=== PATIENT | female | born 1970 | race Caucasian/White ===

== ENCOUNTER 2020-07-16 15:41 | Outpatient (CLI) | payer BC, OTHER ==
--- NOTE | 2020-07-16 16:31 | MMO ---
Bilateral MAMMO Bilat Screen [facility]. CLINICAL HISTORY: Patient is 50 years old and is seen for screening. The patient has no family history of breast cancer. The patient has no personal history of cancer. VIEWS: The views performed were: bilateral craniocaudal with tomosynthesis and bilateral mediolateral oblique with tomosynthesis. This study has been interpreted with the assistance of computer-aided detection. MAMMOGRAM FINDINGS: The breasts are heterogeneously dense, which could obscure a lesion on mammography. Benign calcifications are noted bilaterally. There are no suspicious masses, suspicious calcifications, or new areas of architectural distortion. IMPRESSION: THERE IS NO MAMMOGRAPHIC EVIDENCE OF MALIGNANCY. A ROUTINE FOLLOW-UP MAMMOGRAM IN 1 YEAR IS RECOMMENDED. THE RESULTS OF THIS EXAM WERE SENT TO THE PATIENT. ACR BI-RADS Category 2 - Benign finding MAMMOGRAPHY NOTE: 1. A negative mammogram report should not delay a biopsy if a dominant of clinically suspicious mass is present. 2. Approximately 10% to 15% of breast cancers are not detected by mammography. 3. Adenosis and dense breasts may obscure an underlying neoplasm. Reported by: NESTOR PIERRE MD Electonically Signed: [id number]
== END 2020-07-16 15:42 | disposition home or self-care (01) ==
LOC: BICMAMMO 15:41
PROVIDERS: ATTEND Nurse Practitioner Family
DX: Z12.31 Encounter for screening mammogram for malignant neoplasm of breast (principal)
CPT/HCPCS: 77063; 77067

== ENCOUNTER 2022-04-16 07:57 | Outpatient (CLI) | payer BC ==
[2022-04-16] MEDS ORDERED: Iopamidol-370 76% 500 ML 1 ML ONE (10:39)
== END 2022-04-16 07:58 | disposition home or self-care (01) ==
LOC: BICCT 07:57
PROVIDERS: ATTEND Physician Assistant Medical
DX: C25.9 Malignant neoplasm of pancreas, unspecified (principal); K86.89 Other specified diseases of pancreas; K83.8 Other specified diseases of biliary tract; N20.0 Calculus of kidney; R91.1 Solitary pulmonary nodule
CPT/HCPCS: 71260; 74178; Q9967

== ENCOUNTER 2022-05-05 09:58 | Day surgery (SDC) | payer BC ==
[2022-05-03 15:49] VITALS: BMI 19.2
[2022-05-05] MEDS ORDERED: Bupivacaine/Epinephrine 0.25% 30 ML VIAL ONE (10:39)
[2022-05-05] MEDS ORDERED: Midazolam HCl 2 mg/2 ml Vial ONE (11:41)
[2022-05-05] MEDS ORDERED: fentaNYL PF 100 MCG/2 ML SYRINGE ONE (11:42)
[2022-05-05] MEDS ORDERED: Sodium Chloride 0.9% 100 ML ONE (11:49)
[2022-05-05] MEDS ORDERED: CEFAZOLIN 2 GM VIAL ONE (11:49)
[2022-05-05] MEDS ORDERED: Ondansetron PF 4 MG/2 ML Vial ONE (13:00)
[2022-05-05] MEDS ORDERED: HYDROcodone/Acetaminophen 5/325 mg Tablet ONE (13:56)
== END 2022-05-05 14:53 | disposition home or self-care (01) ==
LOC: SDC 09:58
PROVIDERS: ATTEND Surgery
PROC: 0JH60WZ Insertion of Totally Implantable Vascular Access Device into Chest Subcutaneous Tissue and Fascia, Open Approach (ICD-10-PCS; principal; 2022-05-05)
PROC: 02HV33Z Insertion of Infusion Device into Superior Vena Cava, Percutaneous Approach (ICD-10-PCS; principal; 2022-05-05)
DX: C25.1 Malignant neoplasm of body of pancreas (principal)
CPT/HCPCS: 71045; C1788; J1642; J2250; J2405; J3490

== ENCOUNTER 2022-05-28 13:39 | Day surgery (SDC) | payer BC ==
[2022-05-28 14:20] VITALS: BP 116/73; TEMP 98.6
[2022-05-28] MEDS ORDERED: Prevnar 13-Val Conj/PF 0.5 ML SYRINGE IM ONE (14:30)
[2022-05-28] MEDS ORDERED: PEGFILGRASTIM-JMDB 6 MG/0.6 ML SYRINGE SQ SCH (15:00)
== END 2022-05-28 14:38 | disposition home or self-care (01) ==
LOC: ONC/OP 13:39
PROVIDERS: ATTEND Internal Medicine Hematology & Oncology
DX: Z76.89 Persons encountering health services in other specified circumstances (principal); C25.1 Malignant neoplasm of body of pancreas
CPT/HCPCS: 96372

== ENCOUNTER 2023-01-31 12:24 | Outpatient (CLI) | payer BC | END 2023-01-31 12:25 | disposition home or self-care (01) | LOC: RAD 12:24 | PROVIDERS: ATTEND Nurse Practitioner Family | DX: S99.922A Unspecified injury of left foot, initial encounter (principal); S92.425A Nondisplaced fracture of distal phalanx of left great toe, initial encounter for closed fracture ==

== ENCOUNTER 2023-06-13 08:30 | Outpatient (CLI) | payer BC ==
[2023-06-13] MEDS ORDERED: Iopamidol 370 76% 100 ML VIAL ONE (14:19)
== END 2023-06-13 08:31 | disposition home or self-care (01) ==
LOC: BICCT 08:30
PROVIDERS: ATTEND Internal Medicine Hematology & Oncology
DX: C25.1 Malignant neoplasm of body of pancreas (principal); K86.89 Other specified diseases of pancreas; R91.8 Other nonspecific abnormal finding of lung field; N13.2 Hydronephrosis with renal and ureteral calculous obstruction; Z90.410 Acquired total absence of pancreas
CPT/HCPCS: 71260; 74177; Q9967

== ENCOUNTER 2023-12-21 10:32 | Outpatient (CLI) | payer BC | END 2023-12-21 10:33 | disposition home or self-care (01) | LOC: BICCT 10:32 | PROVIDERS: ATTEND Internal Medicine Hematology & Oncology | DX: C25.1 Malignant neoplasm of body of pancreas (principal); R97.8 Other abnormal tumor markers | CPT/HCPCS: 71260; 74177 ==

== ENCOUNTER 2025-03-19 12:06 | Emergency (ER) | payer BC ==
[2025-03-19 13:00] LABS: Bacteria/HPF None Seen HPF (None Seen); CAUTI Indications for Culture Pelvic or flank pain; Glucose, Urine (Dipstick) Normal (Negative); Leukocyte 75 Leu/uL (Negative); Protein, Urine (Dipstick) Negative (Neg-Trace); RBC/HPF 0-3 HPF (0-3); Specific Gravity, Urine 1.023 (1.002-1.036); WBC/HPF 0-3 HPF (0-3)
[2025-03-19 13:01] LABS: Urine Culture Reflex No No
[2025-03-19 13:02] LABS: #Basophils 0.03 10x3/uL (0.0-0.2); #Eosinophils Less than 0.03 10x3/uL (0.0-0.7); #Monocytes 0.58 10x3/uL (0.11-0.59); #Neutrophils 7.15 10x3/uL (1.40-6.50); %Basophils 0.3 % (0.0-1.0); %Eosinophils 0.1 % (0.0-10.0); %Lymphocytes 21.1 % (21.0-51.0); %Monocytes 5.9 % (0.0-10.0); %Neutrophils 72.3 % (42.0-75.0); Hematocrit 40.1 % (36.0-47.0); Hemoglobin 13.0 g/dL (12.0-16.0); Mean Corpuscular Hemoglobin 27.5 pg (27.0-31.0); Mean Corpuscular Volume 85.0 fL (78.0-98.0); Platelet Count 314 10x3/uL (130-400); Red Blood Cell (RBC) Count 4.72 mill/uL (4.20-5.40); White Blood Cell (WBC) Count 9.89 10x3/uL (4.8-10.8)
[2025-03-19 13:29] LABS: ALT (SGPT) 23 U/L (Less than 34); AST (SGOT) 35 U/L (11-34); Albumin 4.3 g/dL (3.1-4.5); Alkaline Phosphatase 80 U/L (40-110); Anion Gap 12 mmol/L (10-20); BUN (Urea Nitrogen) 14 mg/dL (9.8-20.1); Bilirubin, Total 0.3 mg/dL (0.3-1.2); Calc. Creatinine Clearance 0 mL/min (70-130); Calcium 10.2 mg/dL (7.8-10.44); Carbon Dioxide 27 mmol/L (22-29); Chloride 104 mmol/L (98-107); Globulin 2.7 g/dL (2.4-3.5); Glucose 90 mg/dL (70-105); Lipase 26 U/L (8-78); Potassium 3.9 mmol/L (3.5-5.1); Sodium 139 mmol/L (136-145)
[2025-03-19] MEDS ORDERED: Iopamidol-370 76% 500 ML MDV (1 ML CHARGE) ONE (14:23)
[2025-03-19] MEDS ORDERED: Ketorolac Tromethamine 30 MG (1 mL) VIAL ONE (14:42)
== END 2025-03-19 15:07 | disposition home or self-care (01) ==
LOC: ERS 12:06
DX: R10.31 Right lower quadrant pain (principal)
CPT/HCPCS: 74177; 80053; 81001; 83690; 85025; 96374; J1885; Q9967